=== PATIENT | male | born 1975 | race Caucasian/White ===

== ENCOUNTER 2025-02-15 18:58 | Inpatient (IN) | payer OTHER ==
[2025-02-15 19:24] VITALS: BMI 26.6
[2025-02-15] MEDS ORDERED: NICOTINE POLACRILEX 2 MG GUM BUC PRN (19:43)
[2025-02-15] MEDS ORDERED: NALOXONE (NARCAN) HCL 4 MG/0.1 ML SPRAY NS PRN (19:43)
[2025-02-15] MEDS ORDERED: NICOTINE POLACRILEX 2 MG LOZENGE BC PRN (19:43)
[2025-02-15] MEDS ORDERED: BENZONATATE 200 MG CAPSULE PO PRN (19:43)
[2025-02-15] MEDS ORDERED: POLYETHYLENE GLYCOL (HEALTHYLAX) 3350 17 GM PACKET PO PRN (19:43)
[2025-02-15] MEDS ORDERED: hydrOXYzine PAMOATE 25 MG CAPSULE (FP) PO PRN (19:43)
[2025-02-15] MEDS ORDERED: LOPERAMIDE HCL 2 MG CAPSULE PO PRN (19:43)
[2025-02-15] MEDS ORDERED: IBUPROFEN 400 MG TABLET (FP) PO PRN (19:43)
[2025-02-15] MEDS ORDERED: BENZOCAINE/MENTHOL (CHLORASEPTIC ) LOZENGE MM PRN (19:43)
[2025-02-15] MEDS ORDERED: guaiFENesin 600 MG TABLET.ER (FP) PO PRN (19:43)
[2025-02-15] MEDS ORDERED: MELATONIN 5 MG TABLETS ONE (22:44)
[2025-02-15] MEDS ORDERED: IBUPROFEN 600 MG TABLET (FP) PO ONE (22:44)
[2025-02-15] MEDS: THIAMINE 100 MG TABLET PO SCH (22:45)
[2025-02-15] MEDS: IBUPROFEN 600 MG TABLET (FP) PO PRN (22:45)
[2025-02-15] MEDS: MELATONIN 5 MG TABLETS PO SCH (22:45)
[2025-02-15] MEDS ORDERED: TUBERCULIN PPD 5 TU/0.1ML SYRINGE (IN PATIENT USE ONLY) ID ONE (23:44)
[2025-02-16] MEDS: LISINOPRIL 10 MG TABLET PO SCH (10:34)
[2025-02-16] MEDS: PRENATAL VITAMINS W/ FOLIC ACID TABLET (FP) PO SCH (10:34)
[2025-02-16] MEDS: amLODIPine BESYLATE 10 MG TABLET (FP) PO SCH (10:34)
[2025-02-16 11:15] LABS: MCHC 31.6 g/dl (32.3-36.5); MEAN CELL VOLUME 93.4 fl (79.0-92.2); MEAN PLT VOLUME 10.2 fl (9.4-12.4); RDW 15.2 % (12.1-15.9)
[2025-02-16 11:25] LABS: URINE APPEARANCE CLEAR; URINE BILIRUBIN NEGATIVE (NEGATIVE); URINE COLOR YELLOW; URINE GLUCOSE (UA) NEGATIVE (NEGATIVE); URINE KETONE NEGATIVE (NEGATIVE); URINE LEUK ESTERASE NEGATIVE (NEGATIVE); URINE NITRITE NEGATIVE (NEGATIVE); URINE PROTEIN NEGATIVE (NEGATIVE); URINE UROBILINOGEN 0.2 mg/dL (0.2-1.0)
[2025-02-16 11:26] LABS: CO2 27 mmol/L (21-32); CREATININE 0.7 mg/dL (0.55-1.3); GLUCOSE,RANDOM 146 mg/dL (74-106); SGPT/ALT 63 U/L (13-61)
[2025-02-16 11:28] LABS: TOT PROT 6.6 g/dl (6.4-8.2)
[2025-02-16 11:29] LABS: ALK PHOS 118 U/L (45-117); SGOT/AST 44 U/L (15-37)
[2025-02-16] MEDS ORDERED: TUBERCULIN PPD 5 TU/0.1ML VIAL ID ONE (12:06)
[2025-02-16 12:25] LABS: SYPHILIS W/ RPR CONF NON-REACTIVE (NONREACTIVE)
[2025-02-16] MEDS: TUBERCULIN PPD 5 TU/0.1ML SYRINGE (IN PATIENT USE ONLY) ID ONE (12:38)
[2025-02-16 12:54] LABS: HCV DIAGNOSTIC IN-HOUSE W/RFLX NON-REACTIVE (NONREACTIVE)
[2025-02-17] MEDS: NICOTINE 21 MG/24 HOURS TOPICAL PATCH TD SCH (12:15)
[2025-02-18] MEDS: hydrOXYzine PAMOATE 25 MG CAPSULE (FP) PO PRN (19:38)
[2025-02-20] MEDS: ACETAMINOPHEN 325 MG TABLET (FP) PO PRN (10:55)
[2025-02-20] MEDS: TRANEXAMIC ACID 650 MG TABLET PO SCH (14:21)
[2025-02-20] MEDS: MAGNESIUM HYDROX 2400MG/30ML ORAL SUSPENSION 30 ML CUP PO PRN (18:43)
[2025-02-21] MEDS: SUVOREXANT 10 MG TABLET PO PRN (21:23)
[2025-02-22] MEDS: TUBERCULIN PPD 5 TU/0.1ML VIAL ID ONE (10:30)
[2025-02-24] MEDS: MAG HYDROX/AL HYDROX/SIMETH 30 ML UNIT-DOSE CUP PO PRN (21:19)
[2025-02-25] MEDS: SUVOREXANT 10 MG TABLET PO PRN (21:40)
[2025-02-27] MEDS: SUVOREXANT 10 MG TABLET PO PRN (21:51)
[2025-02-28] MEDS: NICOTINE 7 MG/24 HOURS TOPICAL PATCH TD SCH (10:17)
[2025-03-01] MEDS: SUVOREXANT 10 MG TABLET PO PRN (21:21)
[2025-03-01] MEDS: MIRTAZAPINE 15 MG TABLET (FP) PO SCH (21:21)
[2025-03-02] MEDS: NALTREXONE HCL 50 MG TABLET PO SCH (10:34)
[2025-03-03] MEDS: SUVOREXANT 10 MG TABLET PO PRN (21:56)
[2025-03-06] MEDS: LISINOPRIL 10 MG TABLET PO SCH (21:23)
[2025-03-06] MEDS ORDERED: LISINOPRIL 10 MG TABLET PO SCH (22:00)
[2025-03-07] MEDS: SUVOREXANT 10 MG TABLET PO PRN (21:14)
[2025-03-08] MEDS: HYDROCORTISONE 1% TOPICAL OINT 30 GM TUBE TP PRN (14:14)
[2025-03-08] MEDS: SUVOREXANT 10 MG TABLET PO SCH (21:20)
[2025-03-09] MEDS: LISINOPRIL 5 MG TABLET PO SCH (10:30)
[2025-03-13] MEDS ORDERED: NALTREXONE MICROSPHERES (VIVITROL) 380 MG DISP.SYRIN IM ONE (10:00)
[2025-03-13 22:01] VITALS: PULSE 74
[2025-03-14 05:31] VITALS: BP 143/95; RESP 70; TEMP 97.3
== END 2025-03-14 09:08 | disposition home or self-care (01) | DRG 772 ==
LOC: YASAS 18:58 → Y3W 22:40 → Y3NR 03-09 12:53 → Y3W 03-09 12:54
PROVIDERS: ADMIT Psychiatry & Neurology Pain Medicine; ATTEND Psychiatry & Neurology Pain Medicine
PROC: HZ42ZZZ Group Counseling for Substance Abuse Treatment, Cognitive-Behavioral (ICD-10-PCS; principal; 2025-02-15)
DX: F14.20 Cocaine dependence, uncomplicated (principal); F10.20 Alcohol dependence, uncomplicated; F12.20 Cannabis dependence, uncomplicated; F17.210 Nicotine dependence, cigarettes, uncomplicated; F19.282 Other psychoactive substance dependence with psychoactive substance-induced sleep disorder; F19.280 Other psychoactive substance dependence with psychoactive substance-induced anxiety disorder; F19.24 Other psychoactive substance dependence with psychoactive substance-induced mood disorder; I10 Essential (primary) hypertension
CPT/HCPCS: 36415; 71046-TC-FY; 80053; 80305; 80307; 81003; 82962; 85027; 86780; 86803; 87811; 93005; 93010